=== PATIENT | female | born 1955 | race American Indian/Alaskan Native ===

== ENCOUNTER 2020-07-26 11:00 | Emergency (ER) | payer OTHER ==
[2020-07-26 11:11] VITALS: BP 144/77
--- NOTE | 2020-07-26 12:14 | XRay Report ---
CHEST 2 VIEWS INDICATION / CLINICAL INFORMATION: cough, fever. FINDINGS: SUPPORT DEVICES: None. HEART / MEDIASTINUM: No significant abnormality. LUNGS / PLEURA: No significant pulmonary or pleural abnormality. No pneumothorax. ADDITIONAL FINDINGS: No significant additional findings. IMPRESSION: 1. No acute findings. Signer Name: Nicolas Brownlee MD Signed: 07/26/2020 12:09 PM Workstation Name: [id number]
--- NOTE | 2020-07-26 12:27 | Emergency Department Report ---
- General Chief Complaint: Upper Respiratory Infection Stated Complaint: COUGH CONGESTION Time Seen by Provider: 07/26/20 11:42 Source: patient Mode of arrival: Ambulatory Limitations: No Limitations - History of Present Illness Initial Comments: Patient is a 64-year-old female presents emergency room complaint of URI symptoms that began a week ago. She has associated nasal congestion, chest congestion, cough with mucus production, rhinorrhea, subjective fever, sneezing. She states that she has been taking Tylenol for her subjective fever. She states that she traveled here from [place]. She denies any known sick contacts. She has not been tested for COVID-19. Past medical history of hypertension. Allergies to medications. She states that she just stopped smoking in May but has been smoking since a teenager. - Related Data Previous Rx's Medication Instructions Recorded Last Taken Type Azithromycin [Zithromax TAB] 250 mg PO QDAY 5 Days #6 tablet 07/26/20 Unknown Rx Fluticasone [Flonase] 1 spray NS QDAY #1 bottle 07/26/20 Unknown Rx Loratadine 10 mg PO DAILY #10 tablet 07/26/20 Unknown Rx Prednisone [predniSONE 10 mg 10 mg PO .TAPER #1 tab.ds.pk 07/26/20 Unknown Rx (6-Day Pack, 21 Tabs)] Allergies Allergy/AdvReac Type Severity Reaction Status Date / Time No Known Allergies Allergy Unverified 07/26/20 11:09 ED Review of Systems ROS: Stated complaint: COUGH CONGESTION Other details as noted in HPI Comment: All other systems reviewed and negative ED Past Medical Hx - Past Medical History Hx Hypertension: Yes - Surgical History Past Surgical History?: No - Social History Smoking Status: Never Smoker - Medications Home Medications: Home Medications Medication Instructions Recorded Confirmed Last Taken Type Azithromycin [Zithromax TAB] 250 mg PO QDAY 5 Days #6 tablet 07/26/20 Unknown Rx Fluticasone [Flonase] 1 spray NS QDAY #1 bottle 07/26/20 Unknown Rx Loratadine 10 mg PO DAILY #10 tablet 07/26/20 Unknown Rx Prednisone [predniSONE 10 mg 10 mg PO .TAPER #1 tab.ds.pk 07/26/20 Unknown Rx (6-Day Pack, 21 Tabs)] ED Physical Exam - General Limitations: No Limitations General appearance: alert, in no apparent distress - Head Head exam: Present: atraumatic, normocephalic - Eye Eye exam: Present: normal appearance - ENT ENT exam: Present: normal orophraynx, mucous membranes moist, TM's normal bilaterally, normal external ear exam - Respiratory Respiratory exam: Present: normal lung sounds bilaterally. Absent: respiratory distress, wheezes, rales, rhonchi, stridor, chest wall tenderness, accessory muscle use, decreased breath sounds, prolonged expiratory - Cardiovascular Cardiovascular Exam: Present: regular rate, normal rhythm, normal heart sounds. Absent: systolic murmur, diastolic murmur, rubs, gallop - Neurological Exam Neurological exam: Present: alert, oriented X3 - Psychiatric Psychiatric exam: Present: normal affect, normal mood - Skin Skin exam: Present: warm, dry, intact ED Course Vital Signs 07/26/20 11:08 Temperature 97.8 F Pulse Rate 74 Respiratory 18 Rate Blood Pressure 144/77 O2 Sat by Pulse 97 Oximetry ED Medical Decision Making - Radiology Data Radiology results: report reviewed Ordering Physician: POOJA STORM Date of Service: 07/26/20 Procedure(s): XR chest routine 2V Accession Number(s): [id number] cc: POOJA STORM Fluoro Time In Minutes: CHEST 2 VIEWS INDICATION / CLINICAL INFORMATION: cough, fever. FINDINGS: SUPPORT DEVICES: None. HEART / MEDIASTINUM: No significant abnormality. LUNGS / PLEURA: No significant pulmonary or pleural abnormality. No pneumothorax. ADDITIONAL FINDINGS: No significant additional findings. IMPRESSION: 1. No acute findings. Signer Name: Nicolas Brownlee MD Signed: 07/26/2020 12:09 PM Workstation Name: [id number] Transcribed By: Dictated By: Nicolas Brownlee MD Electronically Authenticated By: Nicolas Brownlee MD Signed Date/Time: 07/26/201208 DD/ 08 TD/TT: Print Cancel - Medical Decision Making Patient is a 64-year-old female presents emergency room complaint of URI symptoms that began a week ago. She has associated nasal congestion, chest congestion, cough with mucus production, rhinorrhea, subjective fever, sneezing. She states that she has been taking Tylenol for her subjective fever. She states that she traveled here from [place]. She denies any known sick contacts. She has not been tested for COVID-19. Past medical history of hypertension. Allergies to medications. She states that she just stopped smoking in May but has been smoking since a teenager. VSS. on exam breath sounds are clear bilaterally, no wheezing, no rales, no rhonchi, normal oropharynx, normal TMs and canals. Chest x-ray 1. No acute findings. Given that patient is a former heavy smoker and has had a change in her mucus production and is having subjective fevers, will cover patient with antibiotics. Patient given prescriptions for medications. Advised patient Please take medication as prescribed. Follow-up with a primary care doctor. Recommend for you to get outpatient COVID-19 testing and quarantine as necessary, please follow CDC guidelines. Return to emergency room for new or symptoms. Critical care attestation.: If time is entered above; I have spent that time in minutes in the direct care of this critically ill patient, excluding procedure time. ED Disposition Clinical Impression: Acute bronchitis Qualifiers: Bronchitis organism: unspecified organism Qualified Code(s): J20.9 - Acute bronchitis, unspecified Disposition: DC- TO HOME OR SELFCARE Is pt being admited?: No Does the pt Need Aspirin: No Condition: Stable Instructions: Acute Bronchitis, Adult, Acute Bronchitis (ED) Additional Instructions: Please take medication as prescribed. Follow-up with a primary care doctor. Recommend for you to get outpatient COVID-19 testing and quarantine as necessary, please follow CDC guidelines. Return to emergency room for new or symptoms. Prescriptions: Fluticasone [Flonase] 1 spray NS QDAY #1 bottle Loratadine 10 mg PO DAILY #10 tablet Prednisone [predniSONE 10 mg (6-Day Pack, 21 Tabs)] 10 mg PO .TAPER #1 tab.ds.pk Azithromycin [Zithromax TAB] 250 mg PO QDAY 5 Days #6 tablet Referrals: KALPESH BUCHANAN MD [Primary Care Provider] - 2-3 Days Time of Disposition: 12:28 Print Language: BENGALI
== END 2020-07-26 12:59 | disposition home or self-care (01) ==
LOC: ED 11:00
DX: J20.9 Acute bronchitis, unspecified (principal); I10 Essential (primary) hypertension; Z79.2 Long term (current) use of antibiotics; Z79.899 Other long term (current) drug therapy
CPT/HCPCS: 71046